=== PATIENT | male | born 1995 | race Caucasian/White ===

== ENCOUNTER → 2019-06-20 | Outpatient (CLI) | payer OTHER ==
[2019-06-20 10:52] LABS: BASO # 0.1 10^3/uL (0.0-0.2); EOS # 0.6 10^3/uL (0.0-0.5); EOS % 10.4 % (0.0-3.0); HEMATOCRIT 43.6 % (42.0-52.0); HEMOGLOBIN 14.3 g/dl (13.5-17.5); LYMPH % 33.6 % (24.0-44.0); MEAN CORPUSCULAR HEMOGLOBIN 28.8 pg (27.0-33.0); MEAN CORPUSCULAR HGB CONC 32.8 g/dl (32.0-36.5); MEAN CORPUSCULAR VOLUME 87.7 fl (80.0-96.0); MONO # 0.5 10^3/uL (0.0-0.8); MONO % 7.7 % (0.0-5.0); NEUTROPHILS # 2.8 10^3/uL (1.5-8.5); NEUTROPHILS % 46.8 % (36.0-66.0); PLATELET COUNT, AUTOMATED 293 10^3/uL (150-450); RED BLOOD COUNT 4.97 10^6/uL (4.30-6.10)
[2019-06-20 11:23] LABS: BLOOD UREA NITROGEN 12 MG/DL (7-18); CALCIUM LEVEL 9.4 MG/DL (8.5-10.1); CARBON DIOXIDE LEVEL 27 MEQ/L (21-32); CHLORIDE LEVEL 104 MEQ/L (98-107); CREATININE FOR GFR 1.01 MG/DL (0.70-1.30); GLOMERULAR FILTRATION RATE > 60.0 (>60); GLUCOSE, FASTING 84 MG/DL (70-100); POTASSIUM SERUM 3.8 MEQ/L (3.5-5.1); SODIUM LEVEL 138 MEQ/L (136-145)
== END ==
LOC: M LAB 10:14
PROVIDERS: ATTEND Podiatrist
DX: M79.672 Pain in left foot (principal)

== ENCOUNTER 2019-06-30 06:14 | Day surgery (SDC) | payer OTHER ==
[~2019-06-30] VITALS: Ht 177.8 cm; Wt 89.4 kg
[~2019-06-30 06:14] MED LIST: LIDOCAINE 1% MDV 20ML VIAL SQ PRN; LR 1,000 ML IV ONE; ceFAZolin SOD 2 GM in IV 1 EA IV ONE
[2019-06-30] MEDS ORDERED: LIDOCAINE 2% INJ 100 MG/5 ML SDV (FOR ANES.) As Ordered ONE (07:09)
[2019-06-30] MEDS ORDERED: fentaNYL 100 MCG/2 ML INJECTION (J3010) As Ordered ONE (07:09)
[2019-06-30] MEDS ORDERED: MIDAZOLAM INJ 2 MG/2 ML VIAL (J2250) As Ordered ONE (07:09)
[2019-06-30] MEDS ORDERED: ONDANSETRON 4MG/2ML VIAL (J2405) As Ordered ONE (07:09)
[2019-06-30] MEDS ORDERED: dexameTHASONE 4 MG/ML 1ML VIAL (J1100) As Ordered ONE ×2 (07:09→07:10)
[2019-06-30] MEDS ORDERED: BACITRACIN PWD 50,000 UNITS VIAL As Ordered ONE (07:10)
[2019-06-30] MEDS ORDERED: LIDOCAINE 2% MDV 20 ML VIAL As Ordered ONE (07:10)
[2019-06-30] MEDS ORDERED: NEOSPORIN GU IRRIG 20 ML VIAL As Ordered ONE (07:10)
[2019-06-30] MEDS ORDERED: BUPIVACAINE HCL 0.5% 30 ML VIAL As Ordered ONE (07:10)
[2019-06-30] MEDS ORDERED: PROPOFOL 200 MG/20 ML VIAL As Ordered ONE (07:15)
[2019-06-30] MEDS ORDERED: ONDANSETRON 4MG/2ML VIAL (J2405) IV PRN (09:30)
[2019-06-30] MEDS ORDERED: LR 1,000 ML IV SCH (09:30)
[2019-06-30] MEDS: oxyCODONE 5MG TAB PO PRN ×2 (09:50→11:18)
[2019-06-30] MEDS: fentaNYL 100 MCG/2 ML INJECTION (J3010) IV PRN ×4 (09:50→10:05)
[2019-06-30 10:25] VITALS: BP 129/62
--- NOTE | 2019-06-30 10:34 | REP ---
LEFT ANKLE, FOUR VIEWS: Four views of left ankle performed. Ankle mortise anatomic. Talus is sclerotic. Talar head is not seen. Otherwise the osseous structures are well aligned. Electronically Signed by Francisco Calhoun MD 07/03/2019 09:07 A
[2019-06-30] MEDS ORDERED: oxyCODONE 5MG TAB As Ordered ONE (11:17)
--- NOTE | 2019-07-03 14:28 | RO ---
DATE OF PROCEDURE: 06/30/2019 PREPROCEDURE DIAGNOSIS: Talar ex ostosis left ankle. POSTPROCEDURE DIAGNOSIS: Talar ex ostosis left ankle. PROCEDURE: Excision of talar ex ostosis left foot. SURGEON: Josse Calvillo DPM ROTARY ENGRAVER: None. ANESTHESIA: General. HEMOSTASIS: Thigh pneumatic tourniquet at 300 mmHg for 51 minutes on the left ankle DRAINS UTILIZED: None. HARDWARE UTILIZED: Bone wax. DESCRIPTION OF PROCEDURE: On 06/30/2019, this 23-year-old male was taken from his hospital room to the operating room and placed on the operating room table in a supine position. Following the induction of IV sedation, local and regional anesthesia, the left lower extremity was prepped and draped in the usual aseptic manner. Thigh pneumatic tourniquet was rapidly inflated to 300 mmHg. The left lower extremity was returned to the operating tablet, sterile draping was completed and the following procedure was performed. EXCISION OF TALAR EX OSTOSIS LEFT ANKLE: Attention was directed to the patient's left foot where an anterior and medial incision was placed on the ankle measuring approximately 6 cm in length. This was placed right over the extensor hallucis longus tendon. Dissection was carried down to the extensor retinaculum which was transected as well as its extensor hallucis longus tendon sheath. The extensor hallucis longus and tibialis anterior tendon were distracted in a medial direction. Dissection was carried down through the inferior aspect of the tendon sheath down to the ankle joint. Dissection was then placed with a linear fashion taking care to avoid the neurovascular bundle. A small circumflexed vessel was placed across the medial aspect. This was tied off with #3-0 Vicryl. All small bleeders as encountered were electrocoagulated. Subperiosteal dissection was then carried out around the anterior ankle exposing a large ex ostosis off the talus. Utilizing curved osteotome and mallet and a rongeur the ex ostosis was removed. Intraoperative C-arm imagery revealed resection of the spurring. It was filed with a hand held file and the bone wax was placed on the raw cancellous surface. The wound was flushed with copious amounts of dilute bacitracin, neomycin and polymyxin B solution. Attention was directed towards closure where the ankle capsule was coapted and maintained with #2-0 Monocryl in a simple interrupted type fashion. The extensor tendon sheath was repaired with #4-0 Vicryl in a simple interrupted type fashion. The extensor retinaculum was repaired with #4-0 Monocryl in a simple interrupted type fashion. The skin incision was coapted and maintained utilizing #4-0 Prolene in a simple interrupted type fashion. Following the completion of the surgical procedure, 4 mg of dexamethasone sodium phosphate was instilled into the ankle joint. Postoperative block was obtained with a 50/50 mixture of 0.5% Marcaine and 2% Xylocaine in a modified ankle block. Sterile dressing was applied consisting of Adaptic, 4x4s, 4x4 splints, Ling, Kerlix and Coban. The thigh pneumatic tourniquet was deflated and instantaneous capillary filling time was noted in digits 1-5 of the patients left foot. The patient having apparently tolerated the surgical procedure well was taken from the operating room (OR) to the recovery room for further monitoring by the anesthesia department. Postoperative instructions will be given upon discharge.
== END 2019-06-30 11:33 | disposition home or self-care (01) ==
LOC: M SDC 06:14
PROVIDERS: ATTEND Podiatrist
DX: M85.872 Other specified disorders of bone density and structure, left ankle and foot (principal); M79.672 Pain in left foot; M25.775 Osteophyte, left foot; M12.872 Other specific arthropathies, not elsewhere classified, left ankle and foot; J34.2 Deviated nasal septum; R06.83 Snoring; R04.0 Epistaxis; F17.290 Nicotine dependence, other tobacco product, uncomplicated; Z91.040 Latex allergy status
CPT/HCPCS: 28100; 73610; 88300; 97116; J0690; J1100; J2250; J2405; J3010